=== PATIENT | male | born 1950 | race Caucasian/White ===

== ENCOUNTER 2017-04-17 15:23 | Emergency (ER) | payer OTHER ==
[2017-04-17 15:32] VITALS: RESP 18; TEMP 98.1; O2SAT 94
--- NOTE | 2017-04-17 15:43 | EDPHY ---
H & P Time Seen by Provider: 04/17/17 15:43 HPI/ROS: Chief complaint. Testicular pain HPI. 59-year-old male presents emergency department with 3 day history left testicular pain. Gradually increasing. Swollen and painful. He has a history of an enlarged epididymis and is being followed by urologist for this. However previously it has not hurt. No recent injury. No urinary symptoms. No other complaints ROS Constitutional. no fever/chills, no weakness Eyes. no problems with vision ENT. no sore throat, no nasal drainage Cardiovascular. no chest pain Respiratory. no shortness of breath, no cough Abdominal. no abdominal pain, no nausea/vomiting, no diarrhea . no problems urinating. Left testicular pain and swelling MS. no calf pain/swelling, no neck/back pain, no joint pain Skin. no rash Lymph. no swollen glands Neuro. no headache, no dizziness, no difficulty walking or with speech Past Medical/Surgical History: Past medical history epididymitis, prostate cancer, hypertension Social History: , nonsmoker, no alcohol Smoking Status: Never smoked Physical Exam: General Appearance: Alert well-developed male mild distress vital signs stable Eyes: Pupils equal and round no pallor or injection. ENT, Mouth: Mucous membranes are moist. Respiratory: There are no retractions, lungs are clear to auscultation. Cardiovascular: Regular rate and rhythm. Gastrointestinal: Abdomen is soft and nontender, no masses, bowel sounds normal. Penis is circumcised. Both testicles are distended. Tenderness and mild swelling especially over the epididymis of the left testicle. Neurological: Awake and alert, sensory and motor exams grossly normal. Skin: Warm and dry, no rashes. Musculoskeletal: Neck is supple nontender. Extremities symmetrical, full range of motion. Psychiatric: Patient is oriented X 3, there is no agitation. Constitutional: Initial Vital Signs Temperature (C) 36.7 C 04/17/17 15:27 Heart Rate 115 H 04/17/17 15:27 Respiratory Rate 18 04/17/17 15:27 Blood Pressure 114/90 H 04/17/17 15:27 O2 Sat (%) 94 04/17/17 15:27 O2 Delivery Mode Room Air Allergies/Adverse Reactions: No Known Allergies Allergy (Unverified 04/17/17 15:32) Home Medications: Medication Instructions Recorded Hydrocodone/APAP 5/325 [[place] 1 each PO Q4-6PRN PRN #14 tab 04/17/17 5/325 (*)] Lisinopril 04/17/17 Medical Decision Making - Diagnostics Imaging Results: Ultrasound of the testicles reviewed by me and discussed with Dr. 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 It is pressing on the testicle. There is prominent epididymis but it is not hypervascular that would be suggestive of acute epididymitis. There is no evidence for torsion ED Course/Re-evaluation: Urinalysis is normal Re-evaluation 4:40 p.m.. The patient and I discussed imaging and lab results. We discussed treatment plan including criteria for return and importance of follow-up and further evaluation. He expresses understanding and agreement Patient's sees a urologist who is not in our system. We will have his ultrasound put on a disc to give to the patient for his follow-up. Differential Diagnosis: I considered epididymitis, urinary tract infection, testicular torsion - Data Points Laboratory Results: 04/17/17 04/17/17 16:15 16:15 Urine Color YELLOW Urine Appearance CLEAR Urine pH 6.0 (5.0-7.5) Ur Specific [place] 1.020 (1.002-1.030) Urine Protein NEGATIVE (NEGATIVE) Urine Ketones NEGATIVE (NEGATIVE) Urine Blood NEGATIVE (NEGATIVE) Urine Nitrate NEGATIVE (NEGATIVE) Urine Bilirubin NEGATIVE (NEGATIVE) Urine Urobilinogen 0.2 EU EU (0.2-1.0) Ur Leukocyte Esterase NEGATIVE (NEGATIVE) Urine RBC NONE SEEN /hpf /hpf (0-3) Urine WBC NONE SEEN /hpf /hpf (0-3) Ur Epithelial Cells TRACE /lpf /lpf (NONE-1+) Urine Bacteria TRACE /hpf H /hpf (NONE SEEN) Urine Mucus TRACE /lpf /lpf (NONE-1+) Urine Glucose NEGATIVE (NEGATIVE) C.trachomatis RNA (TMA) Pending N.gonorrhoeae RNA (TMA) Pending Departure - Departure Disposition: Home, Routine, Self-Care Clinical Impression: Cyst left testicle Condition: Fair Instructions: Testicle Pain (ED) Additional Instructions: You have a cyst in the left testicle that is pressing on the testicle and causing pain swelling. Scrotal support. Ibuprofen 600 mg every 6 hr for discomfort. Hydrocodone in addition as needed for discomfort. Return for worsening symptoms. Call your urologist tomorrow morning to arrange follow-up evaluation. We will give you a CD with you're ultrasound from today on it Referrals: Sybil VIEIRA [Other] - As per Instructions Prescriptions: Hydrocodone/APAP 5/325 [[place] 5/325 (*)] 1 each PO Q4-6PRN PRN #14 tab PRN Reason: Pain, Moderate
[2017-04-17 17:09] VITALS: BP 120/92; PULSE 94
[2017-04-18 12:29] LABS: GC AMPLIFICATION GENPROBE NEGATIVE (NEGATIVE)
== END 2017-04-17 17:00 | disposition home or self-care (01) ==
LOC: CED 15:23
DX: N44.2 Benign cyst of testis (principal); I10 Essential (primary) hypertension; Z85.46 Personal history of malignant neoplasm of prostate
CPT/HCPCS: 76870-PO; 81003-PO; 81015-PO